=== PATIENT | male | born 1970 | race Caucasian/White ===

== ENCOUNTER 2023-10-30 17:48 | Emergency (ER) | payer BC, SELFPAY ==
[2023-10-30 17:52] VITALS: BP 124/86
[2023-10-30 18:27] VITALS: BMI 28.7
--- NOTE | 2023-10-30 18:52 | ED.GENMED ---
History of Present Illness
General
Chief Complaint: Musculo-Skeletal Complaint
Source: patient
Exam Limitations: none
Time Seen by Provider: 10/30/23 18:13
Nursing documentation reviewed up to this point in time: agreed with
Travel History
Have you had any contact with someone who has COVID-19?: No
Do you have any symptoms of coronavirus? Fever > 100 degrees, chills, cough, shortness of breath, sore throat, loss of taste or smell, muscle aches, or headache?: No
History of Present Illness
History of Present Illness:
52-year-old male with no significant chronic medical issues presents to the emergency room for evaluation of left knee pain. Patient reports that he was doing yard work and his right leg slipped and his left knee buckled and twisted inward. He
says he heard a pop in the knee. He has had swelling and pain in the knee since. Came to the emergency room for assessment.
Review of Systems
Review of Systems
All Other Systems: ROS reviewed and negative except as documented in HPI and ROS
Musculoskeletal: Reports joint pain and joint swelling
Phy Exam
Physical Exam
Physical Exam:
General: Well appearing and non-toxic
HEENT: protecting airway
Neck: appears supple
CV: No evidence of cyanosis
Resp: No accessory muscle use
Abd: Non-distended
Extremities: On exam of the left knee patient has full range of motion although he has pain with active extension; he has a moderate-sized joint effusion on the left; he has some lateral joint line tenderness; he has no tenderness to the medial
joint line and no pain with manipulation of patella; there is a positive anterior drawer sign, no laxity on varus or valgus stress
Neuro: Alert
Psych: Normal affect
Skin: Intact
Scores
Heart Failure Risk
Heart Failure Risk Score: Not Applicable
Heart Score for Chest Pain Patients
STEMI patient?: Not applicable
Withdrawal Assessment of Alcohol
Withdrawal Assessment Completed?: Not applicable
Course
Orders/Labs/Results
Orders:
Orders
10/30/23 17:55
Knee, Left 4 or More Views [CR Knee - Left 4 Or More View*] Urgent
Comment:
Reason For Exam: pain
10/30/23 18:51
Crutches-Treatment ONCE
Knee Immobilizer Left-Treatmen ONCE
Vital Signs
Initial and Last Documented VS:
Initial Vital Signs
Temp Pulse Resp BP Pulse Ox
36.9 C 72 18 124/86 97
10/30/23 17:52 10/30/23 17:52 10/30/23 17:52 10/30/23 17:52 10/30/23 17:52
Last Documented Vital Signs
Temp Pulse Resp BP Pulse Ox
36.9 C 72 18 124/86 97
10/30/23 17:52 10/30/23 17:52 10/30/23 17:52 10/30/23 17:52 10/30/23 17:52
Procedures
Splinting/Sling Placement
Left Knee:
Pre-splint extermity exam: neurovascular intact
Type of splint: knee immobilizer
Normal distal neurovascular exam?: Yes
MDM/Problems Addressed
Differential Diagnosis Includes:
Ligamentous injury, meniscus injury, tendon rupture, muscle tear, dislocation or fracture somewhat less likely
MDM/Problems Addressed:
52-year-old male presents for evaluation of the left knee injury�twisted his knee while doing yard work and heard a pop. Exam as above. X-ray shows no fracture or dislocation but does show moderate-sized effusion. Suspect internal derangement of
the knee concerning for possible ACL injury. Will place in a knee immobilizer provide crutches and refer to orthopedics for outpatient follow-up. Advised rest, ice, elevation, Tylenol and Motrin as needed. Patient comfortable with this plan.
Spoke about return precautions and all questions answered.
*Radiology
Radiology exam reviewed: preliminary read by ED provider and radiology read reviewed
*Pulse Oximetry
Patient hypoxic: no
*Critical Care Note
Total Time (30-74mins, 75-104mins- exclusive of procedures): Not Applicable
Data Reviewed
Source: patient
ED Attending Note
-
Portions of this chart may have been created with voice recognition software.� Occasional wrong word or��sound alike� substitutions may have occurred due to the inherent limitations of voice recognition software.
Discharge Plan
Departure
Patient Disposition: Home (Routine Discharge)
Date of Disposition: 10/30/23
Time of Disposition: 18:50
Patient with high blood pressure during this ER visit?: No
Discharge Problem:
Internal derangement of knee
Instructions: Ligament Injuries in the Knee (DC)
Referrals:
Candido Marroquin MD [Active] - Call in 1-3 days for appt (Orthopedist)
Activity Restrictions/Additional Instructions:
Thank you for visiting the Emergency Department at [facility].
1. Please schedule a follow up appointment as directed. Call first thing tomorrow morning to make an appointment.
2. If indicated, please take your medications as instructed and indicated on discharge paperwork.
3. If any of your symptoms do not improve, or persist, or become more severe within 6-12 hours, please return to the emergency department for further care.
4. Please return to the emergency department if you develop a headache, neck pain/stiffness, fever greater than 100.4F, chest pain, shortness of breath, persistent nausea, vomiting, slurred speech, difficulty walking, numbness/tingling, weakness,
signs of infection or any other symptoms that are worrisome to you.
Please call [phone] if you have any questions.
Interventions
Interventions:
*Risk Screen - Suicide Last Done: 10/30/23 17:52
*General Assessment Last Done: 10/30/23 17:52
*Neglect/Abuse Screening Last Done: 10/30/23 17:52
ED-Musculoskeletal Assessment Last Done: 10/30/23 18:29
Discharge Date and Time
Print Language: IRANIAN
== END 2023-10-30 19:23 | disposition home or self-care (01) ==
LOC: EMR 17:48
PROVIDERS: EMERGENCY PHYSICIAN Emergency Medicine
DX: M23.92 Unspecified internal derangement of left knee (principal)
CPT/HCPCS: 99283; 29505; 73564

== ENCOUNTER 2024-12-22 14:11 | Emergency (ER) | payer BC, SELFPAY ==
[2024-12-22 14:15] VITALS: BP 122/83
--- NOTE | 2024-12-22 15:54 | ED.GENMED ---
History of Present Illness
General
Chief Complaint: DVT/Possible Blood Clot
Source: patient
Exam Limitations: none
Time Seen by Provider: 12/22/24 15:07
Nursing documentation reviewed up to this point in time: agreed with
History of Present Illness
History of Present Illness:
Patient to ED with complaint of right calf swelling. States he flew in from [place] on - 12hr fight - and noticed the swelling. States he has chronic pain to his knee and had noticed swelling to knee prior to leaving [place]. Brought to ED by
partner for yan. Denies fever/chills, recent illness. No history of trauma.
Past History
Past History
ED Past Medical History: None
Review of Systems
Review of Systems
Allergies reviewed?: Yes
All Other Systems: ROS reviewed and negative except as documented in HPI and ROS
Constitutional: Reports no symptoms
EENT: Reports no symptoms
Respiratory: Reports no symptoms
Cardiac: Reports no symptoms
ABD/GI: Reports no symptoms
: Reports no symptoms
Musculoskeletal: Reports other (calf swelling right leg)
Skin: Reports no symptoms
Neurological: Reports no symptoms
Psychiatric: Reports no symptoms
Phy Exam
General Physical Exam
General Presentation: well appearing and no apparent distress
General age: appears stated age
General Skin: warm and dry
General Habitus: normal
General Mental: alert
Cardiovascular Exam
Cardiovascular Exam: regular rate/rhythm
Musculoskeletal Exam
Musculoskeletal Exam: full ROM, neuro vasc intact and other (MIld swelling to RLE. No erythema.)
Skin Exam
Skin Exam: normal color, warm/dry and no rash
Psychiatric Exam
Psychiatric Exam: normal mood/affect
Course
Orders/Labs/Results
Orders:
Orders
12/22/24 14:13
US Legs, Right [US Periph Venous LOWER Ext RT] Urgent
Comment:
Reason For Exam: swelling
Vital Signs
Initial and Last Documented VS:
Initial Vital Signs
Temp Pulse Resp BP Pulse Ox
98 F 72 18 122/83 98
12/22/24 14:15 12/22/24 14:15 12/22/24 14:15 12/22/24 14:15 12/22/24 14:15
Last Documented Vital Signs
Temp Pulse Resp BP Pulse Ox
98 F 72 18 122/83 98
12/22/24 14:15 12/22/24 14:15 12/22/24 14:15 12/22/24 14:15 12/22/24 15:59
*Radiology
Radiology exam reviewed: radiology read reviewed
*Pulse Oximetry
SaO2: 98
Oxygen Mode of Delivery: Room air
Patient hypoxic: no
*Critical Care Note
Total Time (30-74mins, 75-104mins- exclusive of procedures): Not Applicable
Update Note
Update Note:
Patient to ED with complaint of right calf swelling. History of chronic knee pain and noticed knee swelling prior to his long flight Wed.Knee no longer swollen. US results reviewed with him. NO evidence of DVT. No cp/SOB. No erythema to RLE.
COnsider dependent edema related to long flight. Recommend compression stockings, elevation, ice. Given instructions on s/s to return to ED and he is agreeable to plan
ED Attending Note
-
Portions of this chart may have been created with voice recognition software.� Occasional wrong word or��sound alike� substitutions may have occurred due to the inherent limitations of voice recognition software.
Discharge Plan
Departure
Patient Disposition: Home (Routine Discharge)
Date of Disposition: 12/22/24
Time of Disposition: 15:59
Patient with high blood pressure during this ER visit?: No
Condition: Good
Covid-19: Not Applicable
Discharge Problem:
Calf swelling
Instructions: Swelling
Activity Restrictions/Additional Instructions:
FOllow up with your orthopedic provider when you return to [place] next week. Wear compressions stockings with long flight, stand and walk on flights when you can.
Interventions
Interventions:
*Risk Screen - Suicide Last Done: 12/22/24 15:52
*General Assessment Last Done: 12/22/24 14:15
*Neglect/Abuse Screening Last Done: 12/22/24 15:52
*ED- Fall Risk Assessment Last Done: 12/22/24 15:52
ED- Cardiac Assessment Last Done: 12/22/24 15:52
ED- Pulmonary Assessment Last Done: 12/22/24 15:52
ED-Skin Assessment Last Done: 12/22/24 15:50
Discharge Date and Time
Print Language: CZECH
== END 2024-12-22 16:20 | disposition home or self-care (01) ==
LOC: EMR 14:11
PROVIDERS: EMERGENCY PHYSICIAN Emergency Medicine
DX: R22.41 Localized swelling, mass and lump, right lower limb (principal)
CPT/HCPCS: 99284; 93971